=== PATIENT | female | born 1960 | race Asian ===

== ENCOUNTER 2023-06-21 08:23 | Inpatient (IN) | payer BC ==
[~2023-06-21] VITALS: Ht 162.6 cm; Wt 77.1 kg
[2023-06-21 08:25] VITALS: BP_SYST 160; PULSE 82; RESP 20; O2SAT 97
[2023-06-21] MEDS ORDERED: MECLIZINE HCL 25 MG TABLET (ANITVERT) PO ONE (08:30)
[2023-06-21] MEDS ORDERED: METOCLOPRAMIDE HCL 10 MG/2 ML VIAL IVP ONE (08:30)
[2023-06-21 08:46] LABS: BASOPHILS # (AUTO) 0.1 K/uL (0.0-0.2); BASOPHILS % (AUTO) 1.4 % (0.0-2.0); EOSINOPHILS # (AUTO) 0.2 K/uL (0.0-0.4); EOSINOPHILS % (AUTO) 3.2 % (0.0-4.0); HEMATOCRIT 43.1 % (36-48); LYMPHOCYTES # (AUTO) 1.8 K/uL (1.0-5.5); LYMPHOCYTES % (AUTO) 37.6 % (20.5-51.5); MEAN CORPUSCULAR HEMOGLOBIN 29 pg (27-31); MEAN CORPUSCULAR HGB CONC 32 % (32-36); MEAN CORPUSCULAR VOLUME 90 fL (79.0-98.0); MONOCYTES # (AUTO) 0.4 K/uL (0.0-1.0); MONOCYTES % (AUTO) 7.6 % (1.7-9.3); NEUTROPHILS # (AUTO) 2.5 K/uL (1.8-7.7); NEUTROPHILS % (AUTO) 50.2 % (40.0-70.0); PLATELET COUNT (AUTO) 199 K/uL (130-430); RED BLOOD CELL COUNT(AUTO) 4.81 MIL/uL (4.2-6.2); RED CELL DISTRIBUTION WIDTH 13.4 % (9.0-15.0); WHITE BLOOD COUNT (AUTO) 4.9 K/uL (4.8-10.8)
[2023-06-21 08:57] LABS: ANION GAP 5 (5-15); CALCIUM 9.2 mg/dL (8.4-11.0); CARBON DIOXIDE 26 mmol/L (23-29); CHLORIDE 103 mmol/L (98-107); CREATININE 0.61 mg/dL (0.55-1.30); GFR AFRICAN AMERICAN 127 mL/min (>90); GLUCOSE 123 mg/dL (74-106); POTASSIUM 3.2 mmol/L (3.5-5.1); SODIUM SERUM 134 mmol/L (136-145); UREA NITROGEN, BLOOD 12 mg/dL (8-21)
[2023-06-21 08:58] LABS: GFR NON AFRICAN-AMERICAN 105 mL/min (>90)
[2023-06-21 09:13] LABS: ALANINE AMINOTRANSFERASE 32 U/L (12-78); ALBUMIN 3.7 g/dL (3.4-4.8); ASPARTATE AMINOTRANSFERASE 21 U/L (10-37); TOTAL BILIRUBIN 0.4 mg/dL (0.0-1.0); TOTAL PROTEIN, SERUM 6.9 g/dL (6.4-8.3)
[2023-06-21] MEDS ORDERED: ASPIRIN 81 MG TABLET(ECOTRIN) PO ONE (10:15)
[2023-06-21] MEDS ORDERED: cloNIDine HCL 0.1 MG TABLET PO PRN (11:00)
[2023-06-21] MEDS ORDERED: POTASSIUM CHLORIDE 20 MEQ TAB.PRT.SR PO ONE (14:00)
[2023-06-21 16:00] VITALS: BP_SYST 165; PULSE 65; RESP 16; TEMP 98.9; O2SAT 100
[2023-06-21 17:59] VITALS: BP_SYST 144; PULSE 72; RESP 16; TEMP 97.9; O2SAT 100
[2023-06-21 19:51] VITALS: O2SAT 100
[2023-06-21 19:56] VITALS: BP_SYST 144; PULSE 66; RESP 20; TEMP 98.8; O2SAT 100
[2023-06-21] MEDS: LOSARTAN POTASSIUM 50 MG TABLET (COZAAR) PO SCH (20:51)
[2023-06-22 00:32] VITALS: BP_SYST 136; PULSE 61; RESP 18; TEMP 99.3; O2SAT 96
[2023-06-22 05:52] LABS: CALCIUM 9.2 mg/dL (8.4-11.0); CREATININE 0.65 mg/dL (0.55-1.30); POTASSIUM 3.9 mmol/L (3.5-5.1)
[2023-06-22 07:59] VITALS: BP_SYST 146; PULSE 68; RESP 18; TEMP 97.2; O2SAT 98
[2023-06-22 08:13] LABS: ALBUMIN 3.1 g/dL (3.4-4.8); BILIRUBIN,DIRECT 0.1 mg/dL (0.0-0.3); THYROID STIMULATING HORMONE 0.72 uIu/mL (0.34-4.82); TOTAL BILIRUBIN 0.5 mg/dL (0.0-1.0); TOTAL PROTEIN, SERUM 6.2 g/dL (6.4-8.3)
[2023-06-22] MEDS ORDERED: FUROSEMIDE 40 MG/4 ML VIAL IVP SCH (09:00)
[2023-06-22] MEDS: LOSARTAN POTASSIUM 50 MG TABLET (COZAAR) PO SCH (09:12)
[2023-06-22] MEDS: MECLIZINE HCL 25 MG TABLET (ANITVERT) PO SCH ×3 (09:13→21:47)
[2023-06-22 11:35] VITALS: BP_SYST 141; PULSE 55; RESP 17; TEMP 97.5; O2SAT 98
[2023-06-22 12:11] LABS: BILIRUBIN,URINE NEGATIVE (NEGATIVE); BLOOD, URINE NEGATIVE (NEGATIVE); CLARITY/URINE CLEAR (CLEAR); COLOR,URINE YELLOW (YELLOW); GLUCOSE,URINE NEGATIVE (NEGATIVE); KETONES,URINE NEGATIVE (NEGATIVE); LEUKOCYTE ESTERASE ,URINE NEGATIVE (NEGATIVE); NITRITE, URINE NEGATIVE (NEGATIVE); PH,URINE 6.5 (5.0-8.0); PROTEIN URINE NEGATIVE (NEGATIVE); UROBILINOGEN,URINE 0.2 (0.2-1.0)
[2023-06-22 15:43] VITALS: BP_SYST 143; PULSE 71; RESP 18; TEMP 98.6; O2SAT 98
[2023-06-22 19:30] VITALS: BP_SYST 139; PULSE 73; RESP 18; TEMP 96.6; O2SAT 99
[2023-06-22 19:35] VITALS: O2SAT 99
[2023-06-23 00:28] VITALS: BP_SYST 133; PULSE 77; RESP 18; TEMP 97; O2SAT 99
[2023-06-23 04:58] LABS: BASOPHILS # (AUTO) 0.1 K/uL (0.0-0.2); BASOPHILS % (AUTO) 1.7 % (0.0-2.0); EOSINOPHILS # (AUTO) 0.2 K/uL (0.0-0.4); EOSINOPHILS % (AUTO) 3.5 % (0.0-4.0); HEMOGLOBIN 13.3 g/dL (12.0-16.0); LYMPHOCYTES # (AUTO) 1.7 K/uL (1.0-5.5); LYMPHOCYTES % (AUTO) 38.2 % (20.5-51.5); MEAN CORPUSCULAR HEMOGLOBIN 29 pg (27-31); MEAN CORPUSCULAR HGB CONC 32 % (32-36); MEAN CORPUSCULAR VOLUME 89 fL (79.0-98.0); MONOCYTES # (AUTO) 0.4 K/uL (0.0-1.0); MONOCYTES % (AUTO) 8.5 % (1.7-9.3); NEUTROPHILS # (AUTO) 2.2 K/uL (1.8-7.7); NEUTROPHILS % (AUTO) 48.1 % (40.0-70.0); PLATELET COUNT (AUTO) 225 K/uL (130-430); RED BLOOD CELL COUNT(AUTO) 4.59 MIL/uL (4.2-6.2); RED CELL DISTRIBUTION WIDTH 13.1 % (9.0-15.0); WHITE BLOOD COUNT (AUTO) 4.5 K/uL (4.8-10.8)
[2023-06-23 05:01] LABS: CALCIUM 8.9 mg/dL (8.4-11.0); CREATININE 0.62 mg/dL (0.55-1.30); POTASSIUM 3.6 mmol/L (3.5-5.1)
[2023-06-23 08:07] VITALS: BP_SYST 166; PULSE 65; RESP 18; TEMP 98.1; O2SAT 99
[2023-06-23] MEDS: MECLIZINE HCL 25 MG TABLET (ANITVERT) PO SCH (08:41)
[2023-06-23] MEDS: LOSARTAN POTASSIUM 50 MG TABLET (COZAAR) PO SCH (08:41)
[2023-06-23 09:28] VITALS: O2SAT 99
[2023-06-23] MEDS ORDERED: MECL-225 PO (11:50)
[2023-06-23] MEDS ORDERED: LOSA-415 PO (11:50)
[2023-06-23] MEDS ORDERED: CLON0.1T PO (12:00)
[2023-06-23 12:22] VITALS: BP_SYST 144; PULSE 67; RESP 18; TEMP 98.4; O2SAT 99
== END 2023-06-23 13:55 | disposition home or self-care (01) | DRG 199 ==
LOC: SED 08:23 → STU 10:49 → SMU 06-23 12:57
PROVIDERS: ADMIT Internal Medicine; ATTEND Internal Medicine
DX: I16.1 Hypertensive emergency (principal); H81.10 Benign paroxysmal vertigo, unspecified ear; I10 Essential (primary) hypertension; R07.89 Other chest pain
CPT/HCPCS: 36415; 70450-TC; 71045; 76376; 80048; 80053; 80061; 80076; 81001; 81003; 83880; 84443; 84484; 85025; 93005; 93306; 96374; 99285; G0378; J2765; J8597